=== PATIENT | female | born 1975 | race Caucasian/White ===

== ENCOUNTER 2022-01-07 11:48 | Outpatient (CLI) | payer OTHER, SELFPAY | END 2022-01-07 11:49 | disposition home or self-care (01) | LOC: LKVREF 11:49 | PROVIDERS: PCP Physician Assistant Medical; Visit Provider Registered Nurse | DX: R35.0 Frequency of micturition (principal); N30.90 Cystitis, unspecified without hematuria | CPT/HCPCS: 87086; 87186 ==

== ENCOUNTER 2022-02-22 12:13 | Outpatient (CLI) | payer OTHER, SELFPAY ==
--- NOTE | 2022-02-22 12:15 | CRLHL7_ITS ---
For Patients: As a result of the Century Cures Act, medical imaging exams and procedure reports are released immediately into your electronic medical record. You may view this report before your referring provider. If you have questions, please contact your health care provider. INDICATION: Abnormal uterine bleeding and cramping TECHNIQUE: Ultrasound pelvis transabdominal and transvaginal for better assessment or to better visualize the endometrium. Real time sonographic images with Spectral and color Doppler imaging of the ovaries were obtained. COMPARISON: None FINDINGS: Uterus: 9.5 centimeter x 4.6 centimeter x 5.3 centimeter. Normal echotexture of the myometrium. No masses. Endometrium: Transvaginal imaging was performed to better evaluate the endometrium. 12 millimeter in thickness. No sign of endometrial mass or fluid. Right ovary: 1.9 centimeter x 1.5 centimeter x 1.6 centimeter no ovarian or adnexal masses. Normal arterial and venous blood flow. 1.5 centimeter dominant follicle. Left ovary: 2.8 centimeter x 2.5 centimeter x 3.3 centimeter no ovarian or adnexal masses. Normal arterial and venous blood flow. 2.0 centimeter left ovarian follicle. Cul-de-sac: No significant free fluid. IMPRESSION: Normal myometrium. No evidence for endometrial polyp. The endometrium measures 12 millimeters in thickness. Dictated by Nehemias Payan MD @ 02/22/2022 2:08:52 PM (Electronically Signed)
== END 2022-02-22 12:14 | disposition home or self-care (01) ==
LOC: US 12:14
PROVIDERS: PCP Physician Assistant Medical; Visit Provider Physician Assistant Medical
DX: N92.6 Irregular menstruation, unspecified (principal); R93.89 Abnormal findings on diagnostic imaging of other specified body structures
CPT/HCPCS: 76830; 76856

== ENCOUNTER 2023-03-06 10:50 | Outpatient (CLI) | payer OTHER, SELFPAY | END 2023-03-06 10:51 | disposition home or self-care (01) | LOC: NFLDREF 03-07 20:22 | PROVIDERS: PCP Physician Assistant Medical; Referring Provider Physician Assistant Medical; Visit Provider Physician Assistant Medical | DX: Z00.00 Encounter for general adult medical examination without abnormal findings (principal); E03.9 Hypothyroidism, unspecified; Z13.6 Encounter for screening for cardiovascular disorders | CPT/HCPCS: 80053; 80061; 84443 ==

== ENCOUNTER 2023-03-23 13:55 | Outpatient (CLI) | payer OTHER, SELFPAY | END 2023-03-23 13:56 | disposition home or self-care (01) | LOC: NFLDREF 03-27 07:17 | PROVIDERS: PCP Physician Assistant Medical; Referring Provider Physician Assistant Medical; Visit Provider Nurse Practitioner Family | DX: F90.9 Attention-deficit hyperactivity disorder, unspecified type (principal); R11.0 Nausea; F33.9 Major depressive disorder, recurrent, unspecified; Z79.899 Other long term (current) drug therapy | CPT/HCPCS: 82306 ==

== ENCOUNTER 2024-09-09 10:51 | Outpatient (CLI) | payer OTHER, SELFPAY | END 2024-09-09 10:52 | disposition home or self-care (01) | LOC: NFLDREF 09-11 03:11 | PROVIDERS: PCP Physician Assistant Medical; Referring Provider Physician Assistant Medical; Visit Provider Physician Assistant Medical | DX: Z00.01 Encounter for general adult medical examination with abnormal findings (principal); E03.9 Hypothyroidism, unspecified; R21 Rash and other nonspecific skin eruption | CPT/HCPCS: 80053; 80061; 82728; 84443 ==